=== PATIENT | female | born 1990 | race African-American/Black ===

== ENCOUNTER 2020-10-30 11:04 | Inpatient (IN) | payer BC, OTHER ==
[2020-10-30] VITALS (19 sets, daily range): BP systolic 68–173; BP diastolic 29–100; PULSE 96–130; TEMP 97.8–98.6
[~2020-10-30] VITALS: Ht 157.5 cm; Wt 90.5 kg
--- NOTE | 2020-10-30 10:15 | NUR ---
Pt arrived on unit ambulatory and with complaints of contractions every couple minutes since 0700. Pt denies any leaking of fluid or vaginal bleeding and reports normal movement. EFM and toco monitors started. SVE by this RN . Dr. Castelan on the unit and notified of pt's arrival. FHR tracing reviewed. Orders for labor admission received. Plan of care reviewed with pt and at the bedside.
--- NOTE | 2020-10-30 10:30 | NUR ---
1040 Iv start to left hand. Iv fluids of lactated ringers infusing bolus. 1041 Pen g 5 million units iv started as ordered and per policy. Anesthesia notified of request of epidural. 1046 Anesthesia here, visits with patient. See anesthesia notes please.
[2020-10-30 10:57] LABS: BASO % 0.3 % (0.0-2.0); EOS # 0.1 (0.0-0.7); EOS % 1.2 % (0-4.0); GRAN # 4.8 (1.4-6.5); HEMOGLOBIN 12.2 g/dl (12.5-16.0); LYMPH # 1.4 (1.2-3.4); LYMPH % 20.5 % (20.0-51.0); MEAN CELL VOLUME 74 fl (80.0-100.0); MEAN CORPUSCULAR HEMOGLOBIN 24 pg (27.0-31.0); MEAN CORPUSCULAR HGB CONC 33 g/dl (33.0-37.0); MEAN PLATELET VOLUME 10.3 fl (7.4-10.4); MONO # 0.5 (0.1-0.6); MONO % 7.6 % (1.7-9.3); PLATELET COUNT 290 K/mm3 (130-400); RED BLOOD COUNT 5.01 M/mm3 (4.10-5.30)
--- NOTE | 2020-10-30 11:00 | NUR ---
1100-Assumed care of patient. Patient LL and reports feeling pressure. Dr. Castelan in to see patient. SVE /0. Intact.Repositioned up semifowlers and will continue to monitor per MD.
[~2020-10-30 11:04] MED LIST: PRENATAL
[2020-10-30 11:06] LABS: ALBUMIN 3.8 gm/dL (3.5-5.0); BILIRUBIN,TOTAL 0.3 mg/dL (0.0-1.0); CALCIUM 8.9 mg/dL (8.4-10.2); CREATININE, serum 0.72 (0.52-1.25); POTASSIUM 3.8 mmol/L (3.4-5.0); TOTAL PROTEIN 7.2 gm/dL (6.4-8.2)
--- NOTE | 2020-10-30 11:07 | NUR ---
1107-SROM, clear fluid. Updated MD who is at unit desk. 1109-C/100/0 per MD. Set up for delivery. 1110-Pushing with contractions and MD at bedside. Moves vertex well. 1111-Straight cath by MD. 1120-MD requests Vacuum and discusses deep decels in FHR and patient agrees to VAVD. 1123-Vacuum placed by MD and patient continues to push with contractions. Moves vertex well. 1126-Vacuum assisted vaginal delivery of head with two pulls and no pop offs. Vacuum removed and body immediately follows. Viable female to mothers abdoemen. Care of assumed by Joseline Villatoro RN Apgars 8/9/9. 1132-Manual removal of placenta by MD. Fundal massage firm. Lochia moderate. EBL 400ml. Pitocin bolus per protocol and MD order. Currette procedure performed by Dr. Castelan following manual removal of placenta. Second degre laceration by MD. Minerva care provided and updated on plan of care and safety.
--- NOTE | 2020-10-30 15:00 | NUR ---
1500-Patient easily up to bathroom and voids 500ml clear yellow urine. Minerva care by patient and ambulates with steady gait to 207 .
[2020-10-30 15:46] LABS: PH 6 (5-8); SQUAMOUS EPITHELIAL None Seen /hpf; URINE APPEARANCE Hazy; URINE BACTERIA Rare /hpf; URINE BILIRUBIN Negative (NEGATIVE); URINE BLOOD 3+ (NEGATIVE); URINE CALCIUM OXALATE CRYSTAL Present /hpf; URINE COLOR Yellow; URINE GLUCOSE Negative (NEGATIVE); URINE KETONE Trace (NEGATIVE); URINE LEUKOCYTE ESTERASE 1+ (NEGATIVE); URINE NITRATE Negative (NEGATIVE); URINE PROTEIN(semi-quant) 2+ (NEGATIVE); URINE RBC >50 /hpf; URINE UROBILINOGEN Negative (NEGATIVE); URINE WBC >50 /hpf
[2020-10-30 15:50] LABS: COLLECTION METHOD CLEAN CATCH
--- NOTE | 2020-10-30 18:45 | NUR ---
Report recieved. Resting in bed at this time. Updated whiteboard and reviewed POC. Denied questions or concerns.
[2020-10-30] MEDS ORDERED: MOTRIN 800800 MG/TAB PO (20:58)
--- NOTE | 2020-10-30 21:55 | NUR ---
Requestes for 2300 motrin to be held until eats again. Encouraged to call for motrin if she is awake and uncomfortable.
[2020-10-31] VITALS: BP 152/93; PULSE 98; TEMP 98.5
[2020-10-31 05:00] VITALS: BP 131/81; PULSE 92; TEMP 98.5
[2020-10-31 08:00] VITALS: BP 150/97; PULSE 94; TEMP 97.7
--- NOTE | 2020-10-31 09:07 | NUR ---
Initial visit; Parents thanked [employer] for ofering congratulations and God's blessings for the of their daughter. [employer] thanked family for choosing [facility].
--- NOTE | 2020-10-31 10:06 | NUR ---
PATIENT SET UP WITH BREAST PUMP AND ENCOURAGED TO PUMP EVERY 3 HOURS.
[2020-10-31 11:45] VITALS: BP 152/96; PULSE 98; TEMP 98.2
[2020-10-31 16:18] VITALS: BP 155/83; PULSE 96; TEMP 98.5
[2020-10-31] MEDS ORDERED: PROCARDIA XL 3030 MG PO (17:14)
[2020-10-31 22:00] VITALS: BP 143/88; PULSE 92; TEMP 97.9
[2020-11-01 06:45] VITALS: BP 151/83; PULSE 92; TEMP 98.3
--- NOTE | 2020-11-01 06:45 | NUR ---
Rests in bed, alert. Denies any discomfort or needs at this time.
== END 2020-11-01 14:25 | disposition home or self-care (01) | DRG 807 ==
LOC: LDRO 11:04 → LDR 11:06 → OB 11:06
PROVIDERS: ADMIT Obstetrics & Gynecology
PROC: 10D07Z6 Extraction of Products of Conception, Vacuum, Via Natural or Artificial Opening (ICD-10-PCS; principal; 2020-10-30)
PROC: 0KQM0ZZ Repair Perineum Muscle, Open Approach (ICD-10-PCS; 2020-10-30)
PROC: 10D17Z9 Manual Extraction of Products of Conception, Retained, Via Natural or Artificial Opening (ICD-10-PCS; 2020-10-30)
DX: O99.824 Streptococcus B carrier state complicating childbirth (principal); Z37.0 Single live birth; O99.02 Anemia complicating childbirth; O99.214 Obesity complicating childbirth; E66.9 Obesity, unspecified; D64.9 Anemia, unspecified; O70.1 Second degree perineal laceration during delivery; O76 Abnormality in fetal heart rate and rhythm complicating labor and delivery; O77.0 Labor and delivery complicated by meconium in amniotic fluid; O14.94 Unspecified pre-eclampsia, complicating childbirth; Z3A.38 38 weeks gestation of pregnancy
CPT/HCPCS: J0690; J2540; J2590; J2795; J7120